=== PATIENT | female | born 1980 | race Caucasian/White ===

== ENCOUNTER 2018-09-20 07:46 | Day surgery (SDC) | payer OTHER ==
[2018-09-19 15:24] LABS: BASOPHILS % (AUTO) 0.5 % (0.0-2.0); EOSINOPHILS # (AUTO) 0.5 K/uL (0-0.4); EOSINOPHILS % (AUTO) 6.1 % (0.0-4.0); HEMATOCRIT 43.2 % (36-48); HEMOGLOBIN 14.5 g/dL (12.0-16.0); LYMPHOCYTES # (AUTO) 1.5 K/uL (2.5-16.5); LYMPHOCYTES % (AUTO) 17.9 % (20.5-51.1); MEAN CORPUSCULAR HEMOGLOBIN 30 pg (27-31); MEAN CORPUSCULAR HGB CONC 34 g/dL (33-37); MEAN CORPUSCULAR VOLUME 88.5 fL (80-94); MONOCYTES # (AUTO) 0.6 K/uL (0.8-1.0); MONOCYTES % (AUTO) 6.7 % (1.7-9.3); NEUTROPHILS # (AUTO) 5.9 K/uL (1.8-7.7); NEUTROPHILS % (AUTO) 68.8 % (42.2-75.2); PLATELET COUNT (AUTO) 373 K/uL (140-450); RED BLOOD CELL COUNT(AUTO) 4.89 MIL/uL (4.20-5.40); RED CELL DISTRIBUTION WIDTH 13.3 % (11.6-13.7); WHITE BLOOD COUNT (AUTO) 8.5 K/uL (4.8-10.8)
[2018-09-19 15:55] LABS: ALBUMIN 3.8 g/dL (3.4-5.0); ANION GAP 14.2 (8-16); CARBON DIOXIDE 25.2 mmol/L (21-32); CREATININE 0.5 mg/dL (0.6-1.3); POTASSIUM 4.4 mmol/L (3.5-5.1)
[2018-09-19 16:16] LABS: TOTAL BILIRUBIN 0.5 mg/dL (0.0-1.0)
[~2018-09-20] VITALS: Ht 144.8 cm; Wt 54.4 kg
[2018-09-20] MEDS ORDERED: ceFAZolin 1,000 MG VIAL ONE (08:39)
[2018-09-20] MEDS ORDERED: LIDOCAINE/EPI 1% 1:100000 20 ML VIAL INJ ONE (08:39)
[2018-09-20] MEDS ORDERED: BUPIVACAINE-MPF/EPI 0.25% 30 ML VIAL INJ ONE (08:40)
[2018-09-20] MEDS ORDERED: LIDOCAINE 1% 500 MG/50 ML VIAL ONE (08:45)
[2018-09-20] MEDS ORDERED: MIDAZOLAM 2 MG/2 ML VIAL ONE (08:54)
[2018-09-20] MEDS ORDERED: fentaNYL 0.05 MG/ML VIAL ONE (08:54)
== END 2018-09-20 11:15 | disposition home or self-care (01) ==
LOC: MMU 07:46 → MDS 07:46
PROVIDERS: ATTEND Surgery
DX: Z45.2 Encounter for adjustment and management of vascular access device (principal); E21.3 Hyperparathyroidism, unspecified; D50.9 Iron deficiency anemia, unspecified; G82.20 Paraplegia, unspecified; Q05.9 Spina bifida, unspecified; E03.9 Hypothyroidism, unspecified; G40.909 Epilepsy, unspecified, not intractable, without status epilepticus; Z79.899 Other long term (current) drug therapy; Z87.442 Personal history of urinary calculi; Z98.890 Other specified postprocedural states
CPT/HCPCS: 36415; 36561; 71045; 76937; 77001; 80053; 81025; 85025; 93005; C1751; J0690; J1644; J2001; J2250; J3010; J3490; J7030; J7060; J7120; Q0092

== ENCOUNTER 2020-01-22 10:54 | Day surgery (SDC) | payer OTHER ==
[~2020-01-22] VITALS: Ht 144.8 cm; Wt 58.0 kg
[2020-01-22 11:42] LABS: BASOPHILS # (AUTO) 0.1 K/uL (0.00-0.22); BASOPHILS % (AUTO) 0.5 % (0.0-2.0); EOSINOPHILS # (AUTO) 0.5 K/uL (0-0.4); EOSINOPHILS % (AUTO) 3.6 % (0.0-4.0); HEMOGLOBIN 14.4 g/dL (12.0-16.0); LYMPHOCYTES # (AUTO) 2.3 K/uL (2.5-16.5); LYMPHOCYTES % (AUTO) 15.8 % (20.5-51.1); MEAN CORPUSCULAR HEMOGLOBIN 29 pg (27-31); MEAN CORPUSCULAR HGB CONC 33 g/dL (33-37); MEAN CORPUSCULAR VOLUME 87.8 fL (80-94); MONOCYTES % (AUTO) 13.7 % (1.7-9.3); NEUTROPHILS # (AUTO) 9.6 K/uL (1.8-7.7); NEUTROPHILS % (AUTO) 66.4 % (42.2-75.2); PLATELET COUNT (AUTO) 414 K/uL (140-450); RED BLOOD CELL COUNT(AUTO) 5.01 MIL/uL (4.20-5.40); RED CELL DISTRIBUTION WIDTH 13.6 % (11.6-13.7); WHITE BLOOD COUNT (AUTO) 14.5 K/uL (4.8-10.8)
[2020-01-22 12:14] LABS: ALBUMIN 3.9 g/dL (3.4-5.0); ANION GAP 16.8 (8-16); CARBON DIOXIDE 21.8 mmol/L (21-32); CREATININE 0.4 mg/dL (0.6-1.3); POTASSIUM 4.6 mmol/L (3.5-5.1)
[2020-01-22 12:25] LABS: TOTAL BILIRUBIN 0.4 mg/dL (0.0-1.0)
[2020-01-22] MEDS ORDERED: BUPIVACAINE-MPF 0.25% 30 ML VIAL INJ ONE (13:03)
[2020-01-22] MEDS ORDERED: LIDOCAINE 1% 500 MG/50 ML VIAL ONE (13:03)
[2020-01-22] MEDS ORDERED: ceFAZolin 1,000 MG VIAL ONE (13:22)
[2020-01-22] MEDS ORDERED: MIDAZOLAM 2 MG/2 ML VIAL ONE (13:22)
[2020-01-22] MEDS ORDERED: LACTATED RINGERS 1,000 ML IV SCH ×2 (14:05→14:30)
[2020-01-22] MEDS ORDERED: ONDANSETRON 4 MG/2 ML VIAL IVP PRN ×2 (14:05→14:30)
[2020-01-22] MEDS ORDERED: MORPHINE SULFATE 2 MG/ML SYR IVP PRN (14:10)
[2020-01-22] MEDS ORDERED: HYDROcodone/APAP 5/325 MG 1 TAB TAB PO PRN (14:10)
[2020-01-22] MEDS ORDERED: MORPHINE SULFATE 4 MG/ML SYR IV PRN (14:10)
[2020-01-22] MEDS ORDERED: ONDANSETRON 4 MG/2 ML VIAL IV PRN (14:10)
[2020-01-22] MEDS ORDERED: HYDROmorphone 1 MG/ML AMP IVP PRN (14:10)
== END 2020-01-22 15:35 | disposition home or self-care (01) ==
LOC: MMU 10:54 → MDS 10:54
PROVIDERS: ATTEND Surgery
DX: Z45.2 Encounter for adjustment and management of vascular access device (principal); E03.9 Hypothyroidism, unspecified; D64.9 Anemia, unspecified; G40.909 Epilepsy, unspecified, not intractable, without status epilepticus; Z79.899 Other long term (current) drug therapy; Z20.828 Contact with and (suspected) exposure to other viral communicable diseases
CPT/HCPCS: 36415; 36590; 80053; 81025; 85025; J0690; J2001; J2250; J3490; J7060; U0003

== ENCOUNTER 2020-03-22 07:13 | Inpatient (IN) | payer OTHER, SELFPAY ==
[~2020-03-22] VITALS: Ht 152.4 cm; Wt 56.2 kg
[2020-03-22 07:13] VITALS: BP 171/95
--- NOTE | 2020-03-22 07:13 | NUR ---
Patient BIBA ALS, transferred to bed 6. RN evaluating patient at bedside.
--- NOTE | 2020-03-22 07:19 | NUR ---
biba to bed 6.
[2020-03-22] MEDS ORDERED: LEVE500T9 PO (07:37)
[2020-03-22] MEDS ORDERED: FOLI1TAB90 PO (07:37)
--- NOTE | 2020-03-22 08:03 | NUR ---
quality control lab tech at bedside.
[2020-03-22 08:22] LABS: BASOPHILS % (AUTO) 0.3 % (0.0-2.0); HEMATOCRIT 43.7 % (36-48); HEMOGLOBIN 14.3 g/dL (12.0-16.0); LYMPHOCYTES # (AUTO) 0.4 K/uL (2.5-16.5); LYMPHOCYTES % (AUTO) 2.7 % (20.5-51.1); MEAN CORPUSCULAR HEMOGLOBIN 28 pg (27-31); MEAN CORPUSCULAR HGB CONC 33 g/dL (33-37); MEAN CORPUSCULAR VOLUME 86.7 fL (80-94); MONOCYTES # (AUTO) 0.4 K/uL (0.8-1.0); MONOCYTES % (AUTO) 2.6 % (1.7-9.3); NEUTROPHILS # (AUTO) 13.5 K/uL (1.8-7.7); NEUTROPHILS % (AUTO) 94.4 % (42.2-75.2); PLATELET COUNT (AUTO) 308 K/uL (140-450); RED BLOOD CELL COUNT(AUTO) 5.03 MIL/uL (4.20-5.40); RED CELL DISTRIBUTION WIDTH 13.8 % (11.6-13.7); WHITE BLOOD COUNT (AUTO) 14.3 K/uL (4.8-10.8)
[2020-03-22 08:49] LABS: ALBUMIN 3.6 g/dL (3.4-5.0); ANION GAP 17.2 (8-16); CARBON DIOXIDE 24.3 mmol/L (21-32); CREATININE 0.5 mg/dL (0.6-1.3); POTASSIUM 3.5 mmol/L (3.5-5.1); TOTAL BILIRUBIN 0.4 mg/dL (0.0-1.0)
[2020-03-22] MEDS ORDERED: NACL 0.9% 1,000 ML IV ONE (08:55)
--- NOTE | 2020-03-22 10:27 | NUR ---
39 YEARS OLD FEMALE BROUGHT IN TO ER BY AMBULANCE WITH SOB NON VERBAL, COVID POSITIVE WILL CONTINUE TO MONITOR NO ACUTE DISTRESS.
--- NOTE | 2020-03-22 10:31 | NUR ---
patient very hard stick unable to insert sl, charge nurse request PICC line.
[2020-03-22] MEDS ORDERED: ALBUTEROL HFA MDI 90 MCG/ACTUATION 8 GM INH PRN (11:05)
[2020-03-22] MEDS ORDERED: HYDROcodone/APAP 7.5/325 MG 1 TAB PO PRN (11:05)
[2020-03-22] MEDS ORDERED: ZOLPIDEM 5 MG TAB PO PRN (11:05)
[2020-03-22] MEDS ORDERED: ONDANSETRON 4 MG/2 ML VIAL IM/IVP PRN (11:05)
[2020-03-22] MEDS: NACL 0.9% 1,000 ML IV SCH (11:05)
[2020-03-22] MEDS ORDERED: POTASSIUM CHLORIDE 40 MEQ, LIDOCAINE MPF 1% 25 MG in NACL 0.9% 250 ML IV PRN (11:05)
[2020-03-22] MEDS ORDERED: guaiFENesin DM 200/20 MG-10 ML 10 ML UDC PO PRN (11:05)
[2020-03-22] MEDS ORDERED: DOCUSATE SODIUM 100 MG GELCAP PO PRN (11:05)
[2020-03-22] MEDS ORDERED: methylPREDNISolone SS 40 MG in WATER STERILE 1 ML IV ONE (11:10)
[2020-03-22 12:20] LABS: PROTHROMBIN TIME 10.5 secs (10.8-13.4)
[2020-03-22 12:22] LABS: APPEARANCE,URINE CLOUDY (CLEAR); BILIRUBIN,URINE NEGATIVE (NEGATIVE); BLOOD, URINE 2+ (NEGATIVE); COLOR,URINE YELLOW (YELLOW); LEUKOCYTE ESTERASE ,URINE 2+ (NEGATIVE); NITRITE, URINE POSITIVE (NEGATIVE); PH,URINE 5.5 (5.0-9.0); UGLUCOSE NEGATIVE (NEGATIVE)
--- NOTE | 2020-03-22 12:29 | NUR ---
CONSENT OBTAINED FROM SISTER KIRT ESQUIVEL, AND SIGNED BY DR MCINTOSH.
[2020-03-22 12:30] LABS: CHOL/HDL RATIO 1.7 (1-4.5); FREE T4 (FREE THYROXINE) 1.72 ng/dL (0.76-1.46); MAGNESIUM 2.1 mg/dL (1.8-2.4); PHOSPHORUS 1.7 mg/dL (2.5-4.9); THYROID STIMULATING HORMONE 1.66 uIU/mL (0.34-3.74)
[2020-03-22 12:42] LABS: WBC,URINE 20-60 /HPF (0-5)
[2020-03-22 12:43] LABS: RBC,URINE 11-20 (MOD) /HPF (0-5)
--- NOTE | 2020-03-22 12:56 | NUR ---
X-RAY AT BEDSIDE TO CONFIRM PLACEMENT PICC INSERTION.
[2020-03-22] MEDS: AZITHROMYCIN 250 MG TAB PO SCH (13:03)
--- NOTE | 2020-03-22 13:19 | NUR ---
MIDLINE PLACEMENT CONFIRMED BY XRAY.
[2020-03-22] MEDS ORDERED: methylPREDNISolone SS 40 MG/ML VIAL IVP SCH (13:30)
[2020-03-22] MEDS ORDERED: remdesivir CLINICAL MONITORING 1 EA MISC MC PRN (14:15)
[2020-03-22] MEDS ORDERED: ceFAZolin 1,000 MG VIAL ONE (15:39)
[2020-03-22] MEDS ORDERED: REMDESIVIR (EUA) 200 MG in NACL 0.9% 100 ML IV SCH (16:00)
[2020-03-22 16:22] LABS: BARBITURATE, URINE NEGATIVE ng/ml (NEG <=200); BENZODIAZEPINE, URINE NEGATIVE ng/mL (NEG <=200); CANNABINOID, URINE NEGATIVE ng/mL (NEG <=50); COCAINE, URINE NEGATIVE ng/mL (NEG <=300); OPIATE, URINE NEGATIVE ng/mL (NEG <=2000); PHENCYCLIDINE SCREEN,URINE NEGATIVE ng/mL (NEG <=25)
--- NOTE | 2020-03-22 16:38 | NUR ---
patient reassess no acute distress, no pain.
[2020-03-22] MEDS: ACETAMINOPHEN 325 MG TAB PO PRN (16:43)
--- NOTE | 2020-03-22 18:23 | NUR ---
patient reassess no acute resp distress, denies pain awake able to follow simple commands.
--- NOTE | 2020-03-22 19:16 | NUR ---
REPORT RECEIEVED FROM STAR REMY FOR CONTINUITY OF CARE
[2020-03-22] MEDS ORDERED: CRUSHER, PILL MC ONE (20:30)
[2020-03-22] MEDS: levETIRAcetam 500 MG TAB PO SCH (20:38)
[2020-03-22] MEDS ORDERED: NON-FORMULARY ITEM (Levetiracetam* (Keppra Xr*) 500 MG) PO SCH (21:00)
--- NOTE | 2020-03-22 21:00 | NUR ---
PT ON 4L NASAL CANNULA. PT AWAKE, ALERT. RESPIRATIONS EVEN AND UNLABORED. CHEST RISE IS SYMMETRICAL. WILL CONTINUE TO MONITOR.
--- NOTE | 2020-03-22 23:12 | NUR ---
PT ON 4L NASAL CANNULA. PT AWAKE, ALERT. RESPIRATIONS EVEN AND UNLABORED. CHEST RISE IS SYMMETRICAL. WILL CONTINUE TO MONITOR.
--- NOTE | 2020-03-23 01:10 | NUR ---
PT ON 4L NASAL CANNULA. PT HAS EYES CLOSED, RESPIRATIONS EVEN AND UNLABORED. CHEST RISE IS SYMMETRICAL. WILL CONTINUE TO MONITOR.
--- NOTE | 2020-03-23 03:40 | NUR ---
PT ON 4L NASAL CANNULA. PT HAS EYES CLOSED, RESPIRATIONS EVEN AND UNLABORED. CHEST RISE IS SYMMETRICAL. WILL CONTINUE TO MONITOR.
--- NOTE | 2020-03-23 05:10 | NUR ---
PT ON 4L NASAL CANNULA. PT HAS EYES CLOSED, RESPIRATIONS EVEN AND UNLABORED. CHEST RISE IS SYMMETRICAL. WILL CONTINUE TO MONITOR.
[2020-03-23] MEDS: NACL 0.9% 1,000 ML IV SCH ×2 (06:55→20:34)
--- NOTE | 2020-03-23 07:00 | NUR ---
EMPITED OUT BUSH CATHETER. 900 ML OF YELLOW URINE OUTPUT.
--- NOTE | 2020-03-23 07:23 | NUR ---
REPORT GIVEN QUINTON REMY FOR CONTINUITY OF CARE
--- NOTE | 2020-03-23 07:24 | NUR ---
REPORT RECEIVED FROM SANDRITA LINARES
--- NOTE | 2020-03-23 08:00 | NUR ---
PT REPOSITIONED IN BED AND PROVIDED WITH BREAKFAST TRAY. CIGAR MAKING SUPERVISOR IN PLACE. EQUAL CHEST RISE AND FALL. BED LOCKED AT LOWEST POSITION, SIDE RAILS X 2. CALL LIGHT WITHIN REACH.
[2020-03-23] MEDS ORDERED: AZITHROMYCIN 250 MG TAB PO SCH (09:00)
[2020-03-23] MEDS ORDERED: PANTOPRAZOLE 40 MG TABEC PO SCH (09:00)
[2020-03-23] MEDS ORDERED: COMMUNICATION ORDER MC SCH (09:00)
[2020-03-23] MEDS: ASCORBIC ACID 500 MG TAB PO SCH (09:06)
[2020-03-23] MEDS: AZITHROMYCIN 250 MG TAB PO SCH (09:06)
[2020-03-23] MEDS: levETIRAcetam 500 MG TAB PO SCH (09:13)
--- NOTE | 2020-03-23 09:28 | NUR ---
PATIENT HAS BEEN SCREENED AND CATEGORIZED MODERATE NUTRITION RISK. PATIENT WILL BE SEEN WITHIN 3-5 DAYS OF ADMISSION. 03/26/20 - 03/28/[address]
[2020-03-23 11:43] LABS: HEMATOCRIT 35.5 % (36-48); HEMOGLOBIN 11.5 g/dL (12.0-16.0); LYMPHOCYTES # (AUTO) 0.2 K/uL (2.5-16.5); LYMPHOCYTES % (AUTO) 1.9 % (20.5-51.1); MEAN CORPUSCULAR HEMOGLOBIN 28 pg (27-31); MEAN CORPUSCULAR HGB CONC 33 g/dL (33-37); MEAN CORPUSCULAR VOLUME 85.5 fL (80-94); MONOCYTES # (AUTO) 0.4 K/uL (0.8-1.0); MONOCYTES % (AUTO) 3.3 % (1.7-9.3); NEUTROPHILS # (AUTO) 11.9 K/uL (1.8-7.7); NEUTROPHILS % (AUTO) 94.8 % (42.2-75.2); PLATELET COUNT (AUTO) 278 K/uL (140-450); RED BLOOD CELL COUNT(AUTO) 4.16 MIL/uL (4.20-5.40); RED CELL DISTRIBUTION WIDTH 13.7 % (11.6-13.7); WHITE BLOOD COUNT (AUTO) 12.5 K/uL (4.8-10.8)
[2020-03-23 12:09] LABS: ALBUMIN 2.8 g/dL (3.4-5.0); ANION GAP 12.7 (8-16); CARBON DIOXIDE 23.9 mmol/L (21-32); CREATININE 0.3 mg/dL (0.6-1.3); TOTAL BILIRUBIN 0.4 mg/dL (0.0-1.0)
[2020-03-23 12:33] LABS: POTASSIUM 2.6 mmol/L (3.5-5.1)
--- NOTE | 2020-03-23 12:36 | NUR ---
Received critical lab value K+ 2.6, Dr. Gomez made aware. Initiate protocol per MD order in eMAR.
--- NOTE | 2020-03-23 13:00 | NUR ---
PROVIDED PT WITH LUNCH TRAY. PT STATES SHE DOES NOT WANT TO EAT AT THIS TIME. SPUDDER/PULSE OX IN PLACE. BED LOCKED AND IN LOWEST POSITION. SIDE RAILS X2.
--- NOTE | 2020-03-23 14:00 | NUR ---
PT ASLEEP IN POSITION OF COMFORT. EQUAL CHEST RISE AND FALL. VSS WITH NO OBVIOUS DISTRESS NOTED. BED LOCKED AT LOWEST POSITION WITH SIDE RAILS X2. CALL LIGHT WITHIN REACH. ALL PT NEEDS MET
[2020-03-23] MEDS ORDERED: cefTRIAXone 1,000 MG VIAL ONE (14:12)
--- NOTE | 2020-03-23 15:23 | NUR ---
PT SITTING UP ON BED IN POSITION OF COMFORT. ALL PT NEEDS MET. EQUAL CHEST RISE AND FALL. VSS. BED LOCKED AT LOWEST POSITION, SIDE RAILS X2. CALL LIGHT WITHIN REACH.
[2020-03-23] MEDS: REMDESIVIR (EUA) 100 MG in NACL 0.9% 100 ML IV SCH (16:04)
--- NOTE | 2020-03-23 16:15 | NUR ---
PT HAD ONE EPISODE OF VOMITING WHEN ATTEMPTING TO EAT LUNCH. PRN ZOFRAN ADMIN
--- NOTE | 2020-03-23 16:50 | NUR ---
[facility] SWAB COLLECTED, WALKED TO LAB AND LEFT WITH GERMAN CASTELLANOS
--- NOTE | 2020-03-23 18:10 | NUR ---
PT SITTING IN BED ASLEEP. PT REASSESSED AND GIVEN BOX OF TISSUE PER REQUEST. ALL PT NEEDS MET. EQUAL CHEST RISE AND FALL WITH NO DISTRESS. VSS. BED LOCKED IN LOWEST POSITION, SIDE RAILS X 2, CALL LIGHT IN REACH
--- NOTE | 2020-03-23 19:00 | NUR ---
PT ASLEEP IN POSITION OF COMFORT. ALL PT NEEDS MET. EQUAL CHEST RISE AND FALL.VSS. BED LOCKED IN LOWEST POSITION, SIDE RAILS X 2, CALL LIGHT IN REACH
--- NOTE | 2020-03-23 19:12 | NUR ---
report given to SANDRITA Macdonald. Transfer of care at this time.
--- NOTE | 2020-03-23 19:12 | NUR ---
REPORT RECEIVED FROM QUINTON REMY FOR CONTINUITY OF CARE
[2020-03-23 19:45] VITALS: BP 150/77
--- NOTE | 2020-03-23 19:45 | NUR ---
RECEIVED REPORT FROM ER NURSE. PT WILL BE ARRIVING SOON. PT IS COVID POSITIVE, DROPLET PRECAUTIONS ENACTED. PT IS BEDBOUND, A&OX1. ON 4L O2 NC. INCONTINENT WITH DIAPER FOR BM. BUSH IN PLACE ON ARRIVAL. SKIN IS INTACT PER ER NURSE. RIGHT UA PICC LINE IN PLACE RUNNING NS AT 60 ML PER HOUR. PLAN OF CARE DISCUSSED.
--- NOTE | 2020-03-23 19:50 | NUR ---
Patient will be admitted to care of DR HERNANDEZ. Admited to [facility]. Will go to room 124B. Belongings list completed. Report to ALIA REMY.
[2020-03-23] MEDS ORDERED: levETIRAcetam 100 MG/ML VIAL IV ONE (20:31)
[2020-03-23] MEDS: levETIRAcetam 500 MG in NACL 0.9% 100 ML IV SCH (20:33)
--- NOTE | 2020-03-23 21:00 | NUR ---
PICTURE WAS TAKEN OF SACRAL WOUND. WOUND APPEARS TO BE HEALING. NO PAIN NOTED. WOUND IS WHITE IN THE CENTER. LENGTH 2 CM, WIDTH 2CM. IT WAS CLEANSED WITH NS AND PATTED DRY. LEFT HEALING WOUND OPEN TO AIR.
--- NOTE | 2020-03-23 23:00 | NUR ---
PT WAS CHANGED AND REPOSITIONED. DIAPER WAS WET. PT HAS A BUSH CATH IN PLACE. PT HAS NOT HAD A BM YET ON THIS SHIFT. NO RESPIRATORY DISTRESS NOTED. NASAL CANNULA IN PLACE WITH 2L O2. PT IS STABLE.
--- NOTE | 2020-03-24 01:15 | NUR ---
PT WAS GIVEN ANOTHER BLANKET AND A SNACK. PT REFUSED TO EAT THE SNACK, BUT DRANK SOME WATER. BREATHING IS UNLABORED. CHEST RISE AND FALL IS SYMMETRICAL. PT DOES NOT APPEAR TO BE IN ANY PAIN. PT IS STABLE.
--- NOTE | 2020-03-24 03:46 | NUR ---
PT IS SLEEPING. CHEST RISE AND FALL IS SYMMETRICAL. BREATHING IS UNLABORED. PT DOES NOT APPEAR TO BE IN ANY DISTRESS. WILL CONTINUE TO MONITOR. FLUIDS ARE INFUSING ORDERED.
[2020-03-24 04:00] VITALS: BP 151/83
--- NOTE | 2020-03-24 05:54 | NUR ---
PT WAS CHANGED AND REPOSITIONED. PILLOWS WERE USED TO OFFSET PRESSURE ON SACRAL REGION. PT IS NOW RESTING. ON 2L O2 NC. BREATHING UNLABORED. IV FLUIDS ARE INFUSING. BED ALARM IS ON.
[2020-03-24 06:15] LABS: BASOPHILS % (AUTO) 0.1 % (0.0-2.0); HEMATOCRIT 34.9 % (36-48); HEMOGLOBIN 11.6 g/dL (12.0-16.0); LYMPHOCYTES # (AUTO) 0.3 K/uL (2.5-16.5); LYMPHOCYTES % (AUTO) 3.2 % (20.5-51.1); MEAN CORPUSCULAR HEMOGLOBIN 28 pg (27-31); MEAN CORPUSCULAR HGB CONC 33 g/dL (33-37); MEAN CORPUSCULAR VOLUME 85.9 fL (80-94); MONOCYTES # (AUTO) 0.3 K/uL (0.8-1.0); MONOCYTES % (AUTO) 3.2 % (1.7-9.3); NEUTROPHILS # (AUTO) 8.5 K/uL (1.8-7.7); NEUTROPHILS % (AUTO) 93.5 % (42.2-75.2); PLATELET COUNT (AUTO) 254 K/uL (140-450); RED BLOOD CELL COUNT(AUTO) 4.06 MIL/uL (4.20-5.40); RED CELL DISTRIBUTION WIDTH 13.9 % (11.6-13.7); WHITE BLOOD COUNT (AUTO) 9.1 K/uL (4.8-10.8)
[2020-03-24 06:32] LABS: ALBUMIN 2.7 g/dL (3.4-5.0); ANION GAP 13.2 (8-16); CARBON DIOXIDE 25.4 mmol/L (21-32); CREATININE 0.3 mg/dL (0.6-1.3); POTASSIUM 3.6 mmol/L (3.5-5.1); TOTAL BILIRUBIN 0.3 mg/dL (0.0-1.0)
--- NOTE | 2020-03-24 07:15 | NUR ---
ENDORSED PT TO DAY SHIFT NURSE FOR CONTINUITY OF CARE. PT IS STABLE AT THIS TIME. PLAN OF CARE DISCUSSED.
[2020-03-24] MEDS: levETIRAcetam 500 MG in NACL 0.9% 100 ML IV SCH ×2 (09:58→20:07)
[2020-03-24] MEDS: FAMOTIDINE 20 MG/2 ML VIAL IVP SCH (09:59)
[2020-03-24] MEDS: ASCORBIC ACID 500 MG TAB PO SCH (09:59)
[2020-03-24] MEDS: DEXAMETHASONE 4 MG/ML VIAL IVP SCH (09:59)
--- NOTE | 2020-03-24 10:00 | NUR ---
PATIENT ASLEEP IN BED WITH LEFT LATERAL POSITION. SCHEDULED MEDICATIONS GIVEN. NO ACUTE DISTRESS NOTED WITH 2L NC. WILL CONTINUE TO MONITOR.
[2020-03-24] MEDS: AZITHROMYCIN 250 MG in DEXTROSE 5% 250 ML IV SCH (11:59)
[2020-03-24 12:00] VITALS: BP 150/87
--- NOTE | 2020-03-24 12:02 | NUR ---
ZITHROMAX GIVEN VIA IVPB, EDUCATION PROVIDED. PATIENT SITTING IN BED HAVING YOGURT. PATIENT IS ABLE TO FEED HERSELF. NO ACUTE DISTRESS NOTED. SAFETY MEASURES IN PLACE, WILL CONTINUE TO MONITOR.
--- NOTE | 2020-03-24 13:16 | NUR ---
UPDATED PATIENT'S SISTER SIERRA REGARDING PATIENT'S CONDITION. TRANSFERRED PHONE TO THE PATIENT, PATIENT COMPLAINT OF HEADACHE. WILL GIVE PAIN MEDICATION.
[2020-03-24] MEDS: ACETAMINOPHEN 325 MG TAB PO PRN (13:29)
[2020-03-24] MEDS: NACL 0.9% 1,000 ML IV SCH (13:29)
--- NOTE | 2020-03-24 13:30 | NUR ---
TYLENOL GIVEN FOR HEADACHE. PATIENT TOLERATED WELL. WILL CONTINUE TO MONITOR.
--- NOTE | 2020-03-24 14:38 | NUR ---
PATIENT'S SISTER SIERRA BROUGHT PATIENT FOOD, GAVE TO THE PATIENT AND ASSISTED TO OPEN THE BOTTLE. PATIENT IN STABLE CONDITION.
--- NOTE | 2020-03-24 15:00 | NUR ---
DIET CONSULT NOTE: DIET CONSULT ORDERED FOR PU, SPOKE WITH RNJALEN, POOR INTAKE MAY BE DUE TO ILLNESS OR HEADACHE, RN ENCOURAGING FEEDS, SPOKE WITH PT'S FAMILY, THEY BROUGHT [place] FRIED CHICKEN (CHICKEN, MASHED POTATOES & [place]/CHEESE), RN STATED PT ATE FOOD BROUGHT BY FAMILY, OFFERED ENSURE OR ENSURE CLEAR FOR ADDITIONAL SUPPORT, RN STATED IT IS NOT NECESSARY AT THIS TIME. FULL NUTRITION ASSESSMENT DUE ON 03/28, WILL REVISIT PO INTAKE AND ADDITIONAL NEED THEN TASHA SALINAS RD
[2020-03-24] MEDS: REMDESIVIR (EUA) 100 MG in NACL 0.9% 100 ML IV SCH (16:07)
--- NOTE | 2020-03-24 19:24 | NUR ---
ENDORSED PATIENT TO NEGATIVE ASSEMBLER RN FOR CONTINUITY OF CARE. PATIENT IN STABLE CONDITION.
--- NOTE | 2020-03-24 19:25 | NUR ---
RECEIVED BEDSIDE REPORT FROM DAY SHIFT NURSE FOR CONTINUITY OF CARE. PT IS AWAKE, A&OX1. PT IS BEDBOUND WITH FALL PRECAUTIONS IN PLACE. LOWER EXTREMITIES ARE FLACCID. ON 4L O2 NC WITH BREATHING UNLABORED. DIAPER IN PLACE AND DRY. BUSH CATH IN PLACE. SACRAL WOUND HEALING. RIGHT UPPER ARM PICC LINE RUNNING NS AT 60 ML PER HOUR. PLAN OF CARE DISCUSSED. DROPLET PRECAUTION IN PLACE FOR COVID POSITIVE. PT IS STABLE.
[2020-03-24 20:00] VITALS: BP 150/90
--- NOTE | 2020-03-24 21:40 | NUR ---
ROUNDED ON PT. SHE IS SITTING UPRIGHT, WATCHING TV. PT IS SHOWING NO SIGNS OF DISTRESS. PT HAS A TABLET WITH HEADPHONES AT BEDSIDE TO SPEAK TO FAMILY. FLUIDS ARE INFUSING AND PATENT. PT IS STABLE.
--- NOTE | 2020-03-24 23:30 | NUR ---
CHECKED ON PT. SHE IS SITTING UPRIGHT, WATCHING TV. PT ASKED TO BE REPOSITIONED IN BED AND THE TABLE WAS BROUGHT CLOSER WERE HER BELONGINGS. PT IS ABLE TO VOICE NEEDS WITH YES AND NO QUESTIONS AND SIMPLE STATEMENTS. PT IS STABLE.
--- NOTE | 2020-03-24 23:45 | NUR ---
SPOKE TO SISTER SIERRA ON THE PHONE AND INFORMED HER ON THE UPDATE OF THE PT. SHE ASKED FOR THE PT'S TABLET TO BE CONNECTED TO [employer]. ATTEMPTED TO CONNECT TO [employer] BUT INTERNET IS NOT WORKING. TOLD FAMILY IF SHE WOULD LIKE TO CALL BACK AND BE CONNECTED TO PHONE IN ROOM. SHE SAID SHE WOULD CALL BACK TOMORROW MORNING.
--- NOTE | 2020-03-25 01:19 | NUR ---
IV FLUIDS ARE INFUSING. PICC LINE IS PATENT AND FLUSHED. BUSH IS IN PLACE AND DIAPER IS DRY. BREATHING IS UNLABORED, PT IS NOW ON RA. BED IS IN THE LOWEST POSITION AND CALL LIGHT/ PHONE IS WITHIN REACH. PT WAS GIVEN SISTERS NUMBER TO CALL WHEN SHE WANTS TO. PT SAID SHE WILL CALL TOMORROW.
--- NOTE | 2020-03-25 03:30 | NUR ---
PT WAS CHANGED AND PT WAS REPOSITIONED. PICC LINE IS FLUSHING AND PATENT. BLANKETS TO COVER PT. NO COUGHING OR SOB. BREATHING IS REGULAR AND UNLABORED. NO DISTRESS NOTED.
[2020-03-25 04:00] VITALS: BP 138/93
--- NOTE | 2020-03-25 05:30 | NUR ---
BLOOD WAS DRAWN FROM PICC LINE. PICC LINE WAS FLUSHED WITH 10 ML NS. FLUIDS ARE RESTARTED. PT IS BACK TO SLEEP IN SEMI FOWLERS POSITION. PT IS STABLE.
[2020-03-25] MEDS: NACL 0.9% 1,000 ML IV SCH (05:45)
[2020-03-25 06:03] LABS: BASOPHILS % (AUTO) 0.2 % (0.0-2.0); HEMATOCRIT 36.4 % (36-48); HEMOGLOBIN 11.9 g/dL (12.0-16.0); LYMPHOCYTES # (AUTO) 0.2 K/uL (2.5-16.5); LYMPHOCYTES % (AUTO) 5.8 % (20.5-51.1); MEAN CORPUSCULAR HEMOGLOBIN 28 pg (27-31); MEAN CORPUSCULAR HGB CONC 33 g/dL (33-37); MEAN CORPUSCULAR VOLUME 85.3 fL (80-94); MONOCYTES # (AUTO) 0.2 K/uL (0.8-1.0); MONOCYTES % (AUTO) 5.7 % (1.7-9.3); NEUTROPHILS # (AUTO) 3.7 K/uL (1.8-7.7); NEUTROPHILS % (AUTO) 88.3 % (42.2-75.2); PLATELET COUNT (AUTO) 297 K/uL (140-450); RED BLOOD CELL COUNT(AUTO) 4.26 MIL/uL (4.20-5.40); RED CELL DISTRIBUTION WIDTH 13.9 % (11.6-13.7); WHITE BLOOD COUNT (AUTO) 4.2 K/uL (4.8-10.8)
--- NOTE | 2020-03-25 07:25 | NUR ---
ENDORSED PT TO DAY SHIFT NURSE FOR CONTINUITY OF CARE. PT IS STABLE AT THIS TIME. NO RESPIRATORY DISTRESS OR SOB NOTED. PLAN OF CARE DISCUSSED.
[2020-03-25 08:33] LABS: ALBUMIN 2.8 g/dL (3.4-5.0); CARBON DIOXIDE 27.2 mmol/L (21-32); CREATININE 0.3 mg/dL (0.6-1.3); POTASSIUM 3.2 mmol/L (3.5-5.1); TOTAL BILIRUBIN 0.3 mg/dL (0.0-1.0)
[2020-03-25] MEDS ORDERED: VITC500 PO (09:16)
[2020-03-25] MEDS ORDERED: DEXA4VIA11 PO (09:16)
[2020-03-25] MEDS ORDERED: CHOL400T12 PO (09:16)
[2020-03-25] MEDS ORDERED: AZIT250T11 PO (09:16)
[2020-03-25] MEDS ORDERED: ZINC50TA PO (09:16)
[2020-03-25] MEDS: levETIRAcetam 500 MG in NACL 0.9% 100 ML IV SCH (09:53)
[2020-03-25] MEDS: DEXAMETHASONE 4 MG/ML VIAL IVP SCH (09:53)
[2020-03-25] MEDS: FAMOTIDINE 20 MG/2 ML VIAL IVP SCH (09:53)
[2020-03-25] MEDS: ASCORBIC ACID 500 MG TAB PO SCH (09:53)
--- NOTE | 2020-03-25 10:00 | NUR ---
SCHEDULED MORNING MEDICATIONS GIVEN. EDUCATION PROVIDED. PATIENT TOLERATED WELL. SAFETY MEASURES IN PLACE. WILL CONTINUE TO MONITOR.
--- NOTE | 2020-03-25 10:15 | NUR ---
WOUND CARE EVALUATION NOTE: SACRALCOCCYX NO OPEN ACTIVE WOUND. HEALED SCAR NOTICED. FOAM DRESSING IN PLACE, KEEP AREA DRY AND CLEAN. CONTINUE TO FOLLOW PRESSURE INJURY PREVENTION INTERVENTIONS. -TURN AND REPOSITION PATIENT Q 2H -ASSESS AND MONITOR SKIN CONDITION DURING POSITION CHANGE -OFFLOAD BILATERAL HEELS BY PLACING PILLOWS UNDER CALVES AT ALL TIMES, UNLESS OTHERWISE CONTRAINDICATED -PRESSURE REDISTRIBUTION BY PLACING PILLOWS AND OFFLOADING SACRALCOCCYX -KEEP SKIN CLEAN AND DRY AT ALL TIMES.
--- NOTE | 2020-03-25 10:43 | NUR ---
PATIENT VOMIT ONCE WITH CLEAR SALIVA AND O2 SAT DESATURATED TO 86%, PUT BACK ON 2L NC. O2 WENT BACK TO 96%. WILL INFORM MD. SAFETY MEASURES IN PLACE. WILL CONTINUE TO MONITOR.
--- NOTE | 2020-03-25 11:24 | NUR ---
PARKER ROLDAN: RECEIVED ORDER FOR HOME 02 FAXED TO [facility]. Addendum: 03/25/20 at 1348 by Rosie Bolivar CM PARKER ROLDAN: RECEIVED A CALL BACK FROM HOSSEIN AT [facility]. PATIENTS HOME O2 HAS BEEN DISPATCHED. Addendum: 03/25/20 at 1525 by Rosie Bolivar CM PARKER ROLDAN: SPOKE TO HOSSEIN TO GET AN ETA ON HOME 02 HE IS NOT ABLE TO GIVE AN ETA AT THIS TIME BECAUSE THEY ARE SO BUSY BUT HOPEFULLY BY 6:00 PM
[2020-03-25] MEDS: AZITHROMYCIN 250 MG in DEXTROSE 5% 250 ML IV SCH (11:58)
[2020-03-25] MEDS: ACETAMINOPHEN 325 MG TAB PO PRN (13:47)
--- NOTE | 2020-03-25 13:48 | NUR ---
TYLENOL GIVEN FOR HEADACHE. EDUCATION PROVIDED. ASSISTED PATIENT TO DIAL HER BROTHER [place]OR[place]'S NUMBER. PATIENT IN STABLE CONDITION. WILL CONTINUE TO MONITOR.
[2020-03-25] MEDS ORDERED: FLU VACCINE QS2020-21 0.5 ML SYR IMVAC PRN (14:20)
--- NOTE | 2020-03-25 14:50 | NUR ---
FLU VACCINE GIVEN VIA IM AT LEFT DELTOID, EDUCATION PROVIDE, PATIENT TOLERATED THE PROCEDURE WELL. SAFETY MEASURES IN PLACE, WILL CONTINUE TO MONITOR.
[2020-03-25] MEDS: REMDESIVIR (EUA) 100 MG in NACL 0.9% 100 ML IV SCH (16:02)
--- NOTE | 2020-03-25 17:35 | NUR ---
PICC LINE REMOVED. COVERED WITH GAUZE, SECURED WITH TAPE. PATIENT'S SISTER BEEN INFORMED REGARDING THE DISCHARGE AND INSTRUCTIONS. VERBALIZED UNDERSTANDING. PATIENT IN STABLE CONDITION.
--- NOTE | 2020-03-25 18:07 | NUR ---
PATIENT BEEN PICKED UP BY THE TRANSPORT AND WENT HOME. IN STABLE CONDITION. ALL BELONGINGS GIVEN. IN STABLE CONDITION.
[2020-03-26 21:07] LABS: T4 (THYROXINE) 15.7 ug/dL (4.5 - 12.0)
== END 2020-03-25 18:21 | disposition home or self-care (01) | DRG 871 ==
LOC: MED 07:13 → MMU 16:59 → MTU 03-23 17:03
PROVIDERS: ADMIT Family Medicine; ATTEND Family Medicine
PROC: XW033E5 Introduction of Remdesivir Anti-infective into Peripheral Vein, Percutaneous Approach, New Technology Group 5 (ICD-10-PCS; principal; 2020-03-22)
PROC: 3E02340 Introduction of Influenza Vaccine into Muscle, Percutaneous Approach (ICD-10-PCS; 2020-03-25)
DX: A41.9 Sepsis, unspecified organism (principal); U07.1 COVID-19; E43 Unspecified severe protein-calorie malnutrition; J96.01 Acute respiratory failure with hypoxia; J12.82 Pneumonia due to coronavirus disease 2019; E87.0 Hyperosmolality and hypernatremia; D68.59 Other primary thrombophilia; G40.909 Epilepsy, unspecified, not intractable, without status epilepticus; E83.39 Other disorders of phosphorus metabolism; R13.10 Dysphagia, unspecified; E87.6 Hypokalemia; G80.9 Cerebral palsy, unspecified; Q05.9 Spina bifida, unspecified; Z98.2 Presence of cerebrospinal fluid drainage device; Z79.899 Other long term (current) drug therapy; Z68.24 Body mass index [BMI] 24.0-24.9, adult; Z23 Encounter for immunization; Z11.52 Encounter for screening for COVID-19
CPT/HCPCS: 36415; 70250; 71045; 72040; 74018; 80053; 80305; 81001; 82150; 83036; 83615; 83690; 83735; 83880; 84100; 84436; 84439; 84443; 84479; 84484; 85025; 85379; 85610; 85651; 85730; 86140; 86886; 86900; 86901; 87081; 93005; 96374; 99285; J0456; J0690; J0696; J1100; J1644; J1953; J2001; J2405; J2920; J3480; J3490; J7030; J7060

== ENCOUNTER 2020-03-26 07:35 | Emergency (ER) | payer OTHER, SELFPAY ==
[~2020-03-26] VITALS: Ht 162.6 cm; Wt 99.8 kg
[~2020-03-26 07:35] MED LIST: AZIT250T11 PO; CHOL400T12 PO; DEXA4VIA11 PO; FOLI1TAB90 PO; LEVE500T9 PO; VITC500 PO; ZINC50TA PO
--- NOTE | 2020-03-26 07:35 | NUR ---
Patient [facility], waiting for an available bed on the ambulance [facility].
[2020-03-26] MEDS ORDERED: ETOMIDATE 20 MG/10 ML VIAL IVP ONE (09:15)
[2020-03-26] MEDS ORDERED: ROCURONIUM 50 MG/5 ML VIAL IV ONE (09:15)
[2020-03-26] MEDS ORDERED: INTUBATION KIT MC ONE (09:28)
--- NOTE | 2020-03-26 09:30 | NUR ---
PAVAN FROM HOME, FAMILY STATES PATIENTS BREATHING BECAME LABORED THIS MORNING, PT IS COVID +. GCS 3. FAMILY STATES THAT PATIENT BECAME UNRESPONSIVE THIS MORNING. NO RESPONSIVE VERBALLY/PAINFUL. RESP LABORED AT THIS TIME. LUNG SOUNDS DIMINISHED THROUGHOUT LOBES. SKIN COOL/DRY.
[2020-03-26 09:34] VITALS: BP 179/118
--- NOTE | 2020-03-26 09:36 | NUR ---
Patient transferred to bed 10B for further care. RN evaluating patient at bedside.
--- NOTE | 2020-03-26 09:40 | NUR ---
CALLED TO ER BED 10B DUE TO PT BEING INTUBATED AT BEDSIDE AND PT IS BEING BAGGED WITH BVM AT 100% AND AT 0945 PT INTUBATED WITH 7.5 ETT SECURES AT 22CM VENT SETTINGS AC 12 VT 400 PEEP 5 FIO2 100% ALARMS ON AND AUDIBLE AND VENT IS PLUGGED INTO RED OUTLET,
--- NOTE | 2020-03-26 09:45 | NUR ---
PATIENT INTUBATED AT THIS TIME BY GIAN MARIA WITH RT AND 2 RN'S AT BEDSIDE
--- NOTE | 2020-03-26 09:46 | NUR ---
Dr Valle at bedside for intuabtion.
[2020-03-26] MEDS ORDERED: PROPOFOL 1000 MG/100 ML PREMIX 100 ML IV ONE ×2 (09:48→10:30)
--- NOTE | 2020-03-26 10:00 | NUR ---
OGT PLACED AT THIS TIME, XRAY AT BEDSIDE TO CONFIRM PLACEMENT
--- NOTE | 2020-03-26 10:04 | NUR ---
Dr. Valle is at the bedside for central line insertion.
[2020-03-26] MEDS ORDERED: VANCOMYCIN 1,000 MG in DEXTROSE 5% 250 ML IV ONE (10:30)
[2020-03-26] MEDS ORDERED: PIPERACILLIN/TAZOBACTAM 3.375 GM in DEXTROSE 5% 50 ML IV ONE (10:30)
[2020-03-26 10:52] LABS: BASOPHILS % (AUTO) 0.2 % (0.0-2.0); HEMOGLOBIN 12.1 g/dL (12.0-16.0); LYMPHOCYTES # (AUTO) 0.2 K/uL (2.5-16.5); LYMPHOCYTES % (AUTO) 1.2 % (20.5-51.1); MEAN CORPUSCULAR HEMOGLOBIN 28 pg (27-31); MEAN CORPUSCULAR HGB CONC 33 g/dL (33-37); MEAN CORPUSCULAR VOLUME 84.5 fL (80-94); MONOCYTES % (AUTO) 8.1 % (1.7-9.3); NEUTROPHILS % (AUTO) 90.5 % (42.2-75.2); PLATELET COUNT (AUTO) 331 K/uL (140-450); RED BLOOD CELL COUNT(AUTO) 4.37 MIL/uL (4.20-5.40); RED CELL DISTRIBUTION WIDTH 13.8 % (11.6-13.7); WHITE BLOOD COUNT (AUTO) 12.1 K/uL (4.8-10.8)
[2020-03-26] MEDS ORDERED: PIPERACILLIN/TAZOBACTAM 3.375 GM VIAL IV ONE (10:55)
[2020-03-26 11:10] LABS: ALBUMIN 2.9 g/dL (3.4-5.0); ANION GAP 8.8 (8-16); CARBON DIOXIDE 33.8 mmol/L (21-32); CREATININE 0.3 mg/dL (0.6-1.3); TOTAL BILIRUBIN 0.4 mg/dL (0.0-1.0)
--- NOTE | 2020-03-26 11:12 | NUR ---
Patient taken to CT via [facility]
[2020-03-26 11:29] LABS: POTASSIUM 2.6 mmol/L (3.5-5.1)
--- NOTE | 2020-03-26 11:34 | NUR ---
AFTER FOUR ATTEMPTS FOR ABG UNABLE TO OBTAIN WILL TRY AGAIN LATER
[2020-03-26] MEDS ORDERED: POTASSIUM CHL 40 MEQ/ D5-1/2NS 1,000 ML IV ONE (11:40)
[2020-03-26] MEDS ORDERED: MORPHINE SULFATE 4 MG/ML SYR IVP ONE (14:00)
[2020-03-26 14:03] VITALS: BP 137/91
--- NOTE | 2020-03-26 14:40 | NUR ---
TONorma PRONOUNCED BY GIAN MARIA AT 1440
--- NOTE | 2020-03-26 15:09 | NUR ---
Assumed care of pt from CN @ 1300 for extubation. Family @ bedside for end of life.
--- NOTE | 2020-03-26 15:12 | NUR ---
[facility]ARM[facility]OG[facility] CONTACTED AT THIS TIME
--- NOTE | 2020-03-26 15:17 | NUR ---
[facility] CONTACTED AT THIS TIME
--- NOTE | 2020-03-26 15:18 | NUR ---
PT DOES NOT QUALIFY FOR TISSUE DONATION
--- NOTE | 2020-03-26 16:19 | NUR ---
SPOKE WITH RHEA BASS FROM EVENT CREW TECHNICIAN OFFICE, STATES IT IS OKAY TO MOVE BODY TO [facility] [employer]. EVENT CREW TECHNICIAN WILL RECONTACT FOR CASE NUMBER
--- NOTE | 2020-03-26 22:45 | NUR ---
S/W NEMO LIM AT ORACLE ARCHITECT'S OFFICE WHO PROVIDED REPORT # [id number] AND BODY IS NOW RELEASED.
--- NOTE | 2020-03-27 00:57 | NUR ---
PT CHART GIVEN TO METAL OFF BEARER.
--- NOTE | 2020-04-01 10:55 | NUR ---
LATE ENTRY -- PROPOFOL INFUSION COMPLETED AT 1440, VANCOMYCIN COMPLETED AT 1130, ZOSYN COMPLETED AT 1207, AND D5 .45NS WITH KCL 40MEQ COMPLETED AT 1440
== END 2020-03-26 14:40 ==
LOC: MED 07:35
DX: U07.1 COVID-19 (principal); J96.91 Respiratory failure, unspecified with hypoxia; G93.40 Encephalopathy, unspecified; I21.4 Non-ST elevation (NSTEMI) myocardial infarction; E87.6 Hypokalemia
CPT/HCPCS: 31500; 36415; 70450; 71045; 80053; 84484; 85025; 86140; 93005; 96365; 96366; 96368; 96375; 99291; J2543; J2704; J3370; J3490; J7060